=== PATIENT | female | born 1930 | race Hispanic/Latino ===

== ENCOUNTER → 2017-05-28 | Day surgery (SDC) | payer OTHER ==
[~2017-05-28] MED LIST: CEFTRIAXONE SOD 1 GM VIAL ONE; CLONIDINE HCL0.2 MG PO; FENTANYL CITRATE/PF 100MCG/2 ML INJ ONE; IOPAMIDOL 610MG/1ML 300 MG/ML VIAL IV ONE; LANSOPRAZOLE15 MG PO; LIDOCAINE HCL 2% LOCAL INJ 5 ML SDV VIAL INJ ONE; LOSARTAN POTASS50 MG PO; NIFEDIPINE PO; OMEPRAZOLE40 MG PO; OXYBUTYNIN CHLOR5 MG PO; PROPOFOL IV EMULSION 10 MG/ML 20 ML VIAL ONE
--- NOTE | 2017-05-28 11:26 | Diagnostic Imaging Report ---
PROCEDURE: Frontal and lateral views of the chest. COMPARISON: None. INDICATIONS: PREOPERATIVE FOR ABDOMEN SURGERY FINDINGS: Lines/tubes: None. Lungs: Lungs are well-inflated. Linear opacities in the right middle lobe and lingula likely represent subsegmental atelectasis or scarring. No consolidation or pulmonary edema. Pleura: There is no pleural effusion or pneumothorax. Heart and mediastinum: Mild enlargement of the cardiac silhouette. Pulmonary vasculature is normal. Bones: No acute bony abnormality. No aggressive lytic lesion. Multilevel degenerative disc changes in the thoracic spine. IMPRESSION: 1. No acute cardiopulmonary abnormalities. Jethro Hoskins M.D. Dictated by: Jethro Hoskins M.D. on 05/28/2017 at 11:34 Electronically approved by: Jethro Hoskins M.D. on 05/28/2017 at 11:34
[2017-05-28 12:26] LABS: BASOPHILS # (AUTO) 0.1 (0.0-0.1); BASOPHILS % 0.8 % (0.0-1.0); EOSINOPHILS # (AUTO) 0.2 (0.0-0.4); EOSINOPHILS % 1.6 % (0.0-6.0); HEMOGLOBIN 13.6 g/dL (12.0-16.0); LYMPHOCYTES # (AUTO) 2.8 (1.0-3.2); LYMPHOCYTES % 30.7 % (18.0-39.1); MEAN CORPUSCULAR HEMOGLOBIN 30.3 pg (28-32); MEAN CORPUSCULAR VOLUME 89.1 fL (81-99); MONOCYTES # (AUTO) 0.5 (0.2-0.8); MONOCYTES % 5.7 % (4.4-11.3); NEUTROPHILS # (AUTO) 5.6 (2.1-6.9); NEUTROPHILS % 60.9 % (38.7-80.0); PLATELET COUNT 250 x10e3/uL (140-360); RED BLOOD COUNT 4.49 x10e6/uL (3.6-5.1)
--- NOTE | 2017-05-31 08:44 | Operative Report ---
DATE OF PROCEDURE: May 28, 2017 PREOPERATIVE DIAGNOSES 1. Multiple chronic urinary tract infections. 2. Clinical signs and symptoms of interstitial cystitis and light hematuria. POSTOPERATIVE DIAGNOSES 1. Multiple chronic urinary tract infections. 2. Clinical signs and symptoms of interstitial cystitis and light hematuria. PROCEDURES 1. Cystourethroscopy with hydrodistention (entirely separate procedure for clinical signs and symptoms of interstitial cystitis). 2. Cystourethroscopy with left ureteral catheterization and left retrograde pyelogram (separate procedure for multiple chronic urinary tract infections). 3. Cystourethroscopy with right ureteral catheterization and right retrograde pyelogram (separate procedure for multiple chronic urinary tract infections). 4. Supervision of fluoroscopy. 5. Interpretation of retrograde ureteropyelography. ANESTHESIA: General. ESTIMATED BLOOD LOSS: Minimal. COMPLICATIONS: None. INDICATIONS FOR PROCEDURE: Ms. Julian is an 87-year-old female with multiple chronic urinary tract infections. She and I had a long discussion about alternatives, risks and benefits including doing nothing, cystoscopy. PROCEDURE IN DETAIL: Attention was turned to the left and right ureteral orifices. It was catheterized with an 8-Telugu cone-tipped catheter and injection revealed delicate caliceal systems. No tumors. No stones. Hydrodistention was performed with a capacity of 800 mL. No glomeruloses. No Dominick's ulcers. The bladder was drained. The patient was awakened from anesthesia and transported to the recovery room in excellent condition. SUPERVISION OF FLUOROSCOPY, INTERPRETATION OF RETROGRADE URETERAL PYELOGRAPHY: I was present throughout the entire procedure and I supervised the use of fluoroscopy. There was no radiologist present at any time during this procedure. Attention was turned toward the left and right ureteral orifices, catheterized with an 8-Telugu cone-tipped catheter. In a retrograde fashion, contrast was injected. It revealed delicate ureters, delicate pelviceal systems. No evidence of filling defects. No evidence of hydronephrosis. IMPRESSION: Normal retrograde pyelograms. Job#: [id number]
== END | disposition home or self-care (01) ==
LOC: OR 10:25
PROVIDERS: ATTEND Urology
DX: N39.0 Urinary tract infection, site not specified (principal); R35.1 Nocturia; R32 Unspecified urinary incontinence; I10 Essential (primary) hypertension; I45.10 Unspecified right bundle-branch block
CPT/HCPCS: 36415; 52005; 71020; 74420; 85025; 93005; C1758; J0696; J2001; Q9967

== ENCOUNTER → 2017-05-31 | Outpatient (CLI) | payer OTHER ==
[~2017-05-31] MED LIST changes: -CEFTRIAXONE SOD 1 GM VIAL ONE; -FENTANYL CITRATE/PF 100MCG/2 ML INJ ONE; -IOPAMIDOL 610MG/1ML 300 MG/ML VIAL IV ONE; -LIDOCAINE HCL 2% LOCAL INJ 5 ML SDV VIAL INJ ONE; -PROPOFOL IV EMULSION 10 MG/ML 20 ML VIAL ONE
--- NOTE | 2017-05-31 13:41 | Diagnostic Imaging Report ---
PROCEDURE:US RETROPERITONEAL ( KIDNEY ). COMPARISON:None. INDICATIONS:uti TECHNIQUE: Kennedy-scale and color sonographic images of the bilateral kidneys and bladder where obtained in transverse and longitudinal planes. FINDINGS: RIGHT KIDNEY: 9.1 cm in length, cortical thickness 1.4 cm. Cysts: None Solid masses: None Stones: None Hydronephrosis: None Echogenicity: Normal renal cortical echogenicity. LEFT KIDNEY: 9.2 cm in length, cortical thickness 1.7 cm. Cysts: None Solid masses: None Stones: None Hydronephrosis: None Echogenicity: Normal renal cortical echogenicity. Bladder: Unremarkable. A right ureteral jet is identified. A left ureteral jet is not identified, likely related to timing of acquisition. CONCLUSION: Unremarkable sonographic appearance of the kidneys. Dictated by: Nader Subramanian M.D. on 05/31/2017 at 13:50 Electronically approved by: Nader Subramanian M.D. on 05/31/2017 at 13:50
== END ==
LOC: US 12:49
PROVIDERS: ATTEND Urology
DX: N39.0 Urinary tract infection, site not specified (principal)
CPT/HCPCS: 76770